=== PATIENT | male | born 1935 | race Caucasian/White ===

== ENCOUNTER 2019-04-17 07:21 | Emergency (ER) | payer OTHER ==
[~2019-04-17] VITALS: Ht 167.6 cm; Wt 84.8 kg
--- NOTE | 2019-04-17 07:25 | NUR ---
[id number], from home, sob, weak and dizzy, 84% on RA, Albuterol 5mg given on scene. Patient a/ox4, o2 sat on 84% in room air. Placed on 3LPM via NC with o2 sat of 94%. No distress noted. Family at bedside.
--- NOTE | 2019-04-17 07:39 | NUR ---
dr. alcantara at bedside for eval.
[2019-04-17] MEDS ORDERED: IPRATROPIUM NEB FS 0.5 MG/2.5 ML AMPUL.NEB ONE ×2 (07:46→07:57)
[2019-04-17] MEDS ORDERED: ALBUTEROL FS 2.5 MG/3 ML VIAL.NEB ONE ×2 (07:46→07:57)
[2019-04-17] MEDS ORDERED: IPRATROPIUM NEB FS 0.5 MG/2.5 ML AMPUL.NEB NEB ONE (08:00)
[2019-04-17] MEDS ORDERED: methylPREDNISolone SOD SUCC 125 MG/2ML VIAL IV ONE (08:00)
[2019-04-17] MEDS ORDERED: ALBUTEROL FS 2.5 MG/3 ML VIAL.NEB CONTNEB ONE (08:00)
[2019-04-17] MEDS ORDERED: methylPREDNISolone SOD SUCC 125 MG/2ML VIAL ONE (08:01)
[2019-04-17 08:18] LABS: BASOPHILS % (AUTO) 0.4 % (0.0-2.0); EOSINOPHILS % (AUTO) 0.1 % (0.0-6.0); HEMATOCRIT 34 % (39-51); HEMOGLOBIN 11.1 g/dL (13.5-17.5); LYMPHOCYTES # (AUTO) 0.3 /CMM (0.8-4.8); LYMPHOCYTES % (AUTO) 3.8 % (20.0-44.0); MEAN CORPUSCULAR HGB CONC 32 g/dl (31.0-36.0); MEAN CORPUSCULAR VOLUME 87 fL (80-96); MONOCYTES # (AUTO) 0.8 /CMM (0.1-1.30); MONOCYTES % (AUTO) 9.7 % (2.0-12.0); PLATELET COUNT (AUTO) 198 /CMM (150-450); RED BLOOD CELL COUNT(AUTO) 3.95 MIL/uL (4.5-6.0); WHITE BLOOD COUNT (AUTO) 8.1 K/uL (4.3-11.0)
[2019-04-17 08:25] LABS: CALCIUM, SERUM 8.8 mg/dL (8.5-10.1); CARBON DIOXIDE 24 mmol/L (21-32); CHLORIDE 107 mmol/L (98-107); CREATININE 2.5 mg/dL (0.6-1.3); GLUCOSE 136 mg/dL (74-106); POTASSIUM 3.6 mmol/L (3.5-5.1); SODIUM SERUM 142 mmol/L (136-145); UREA NITROGEN, BLOOD 62 mg/dL (7-18)
[2019-04-17 08:31] LABS: ALANINE AMINOTRANSFERASE 48 U/L (12-78); ALBUMIN 2.8 g/dL (3.4-5.0); ALKALINE PHOSPHATASE 152 U/L (46-116); ASPARTATE AMINOTRANSFERASE 38 U/L (15-37); BILIRUBIN,DIRECT 0.4 mg/dL (0.0-0.2); BILIRUBIN,TOTAL 0.9 mg/dL (0.2-1.0); TOTAL PROTEIN, SERUM 6.3 g/dL (6.4-8.2)
[2019-04-17] MEDS ORDERED: CEFTRIAXONE 1GM BAG (ER ONLY) 50 ML IV ONE ×2 (09:00→09:05)
[2019-04-17] MEDS ORDERED: AZITHROMYCIN 500 MG in IV D5W 250 ML IV ONE (09:00)
--- NOTE | 2019-04-17 09:04 | NUR ---
CALLED AND SPOKE WITH SHARDA FROM [facility].
--- NOTE | 2019-04-17 09:41 | NUR ---
Patient is resting comfortably in bed with eyes closed. Easily aroused. VSS
--- NOTE | 2019-04-17 09:42 | NUR ---
RECEIVED A CALL FROM DR. GREENFIELD FROM [facility]
--- NOTE | 2019-04-17 10:33 | NUR ---
called for lunch tray per pt request
--- NOTE | 2019-04-17 10:38 | NUR ---
[facility] and repeat troponin level
--- NOTE | 2019-04-17 11:54 | NUR ---
[employer] DMITRI SAYS STILL LOOKING FOR A BED
--- NOTE | 2019-04-17 12:39 | NUR ---
ACCEPTING MD Candice VOSS [facility] ETA APPROX 1400 ALS STILL AWAITING BED AND # FOR REPORT Addendum: 04/17/19 at 1240 by HFOX SPOKE WITH ISIDRO AT [facility]
--- NOTE | 2019-04-17 12:56 | NUR ---
URINE COLLECTED AND SENT TO LAB
[2019-04-17 12:59] VITALS: BP 135/90
--- NOTE | 2019-04-17 13:03 | NUR ---
TRANSFER INFO: PT GOING TO [facility], ACCEPTED BY DR VOSS, RN FOR REPORT [phone]. [facility] ETA 1400 Addendum: 04/17/19 at 1315 by SHANNAN [address]
[2019-04-17 13:09] LABS: APPEARANCE,URINE Clear (CLEAR); BILIRUBIN,URINE Negative (NEGATIVE); BLOOD, URINE Small Ery/uL (NEGATIVE); COLOR,URINE Yellow (YELLOW); KETONES,URINE Negative (NEGATIVE); LEUKOCYTE ESTERASE ,URINE Negative (NEGATIVE); NITRITE, URINE Negative (NEGATIVE); PH,URINE 5.5 (5.0-8.0); PROTEIN,URINE 100 mg/dl (NEGATIVE); UGLUCOSE Negative (NEGATIVE); UROBILINOGEN,URINE 0.2 EU/dL (0.2)
[2019-04-17 13:24] LABS: BACTERIA,URINE None seen /HPF (None Seen); SQUAMOUS EPITHELIAL CELL,UR Few /HPF (None Seen); WBC,URINE 0-2 /HPF (0-3)
--- NOTE | 2019-04-17 13:31 | NUR ---
REPORT GIVEN TO [facility]
--- NOTE | 2019-04-17 13:58 | NUR ---
PT TRANSFERRED IN STABLE CONDITION. REPORT GIVEN TO EMS.
== END 2019-04-17 14:00 | disposition short-term general hospital (02) ==
LOC: ER 07:23
DX: J18.9 Pneumonia, unspecified organism (principal); N19 Unspecified kidney failure; R79.89 Other specified abnormal findings of blood chemistry; I10 Essential (primary) hypertension; J45.909 Unspecified asthma, uncomplicated; E11.9 Type 2 diabetes mellitus without complications
CPT/HCPCS: 36415; 71045; 80048; 80076; 81001; 83605; 84145; 84484 ×2; 85025; 85730; 87040 ×2; 87086; 87804 ×2; 93005 ×2; 94640; 96365; 96367; 96375; 99285; J0456; J0696; J2930; J7060; 81000-TC